=== PATIENT | male | born 1990 | race African-American/Black ===

== ENCOUNTER 2016-11-24 01:20 | Emergency (ER) | payer MEDICAID, OTHER ==
[~2016-11-24] VITALS: Ht 182.9 cm; Wt 108.9 kg
[2016-11-24 02:29] LABS: Basophils # (auto) 0 uL; Basophils % (auto) 0.4 % (0.0-2.0); Eosinophils # (auto) 0.1 uL; Eosinophils % (auto) 0.6 % (0.0-7.0); Hematocrit 49.1 % (41.0-53.0); Hemoglobin 15.7 g/dL (13.5-17.5); Lymphocytes # (auto) 2.5 uL; Lymphocytes % (auto) 21.4 % (10.0-50.0); Mean Corpuscular Hemoglobin 27.6 pg (28.0-32.0); Mean Corpuscular Volume 86.2 fL (80.0-100.0); Mean Platelet Volume 9.3 fL (7.4-10.4); Monocytes # (auto) 0.6 uL; Monocytes % (auto) 5.5 % (0.0-12.0); Neutrophils # (auto) 8.5 uL; Neutrophils % (auto) 72.1 % (37.0-80.0); Platelet Count (auto) 247 10^3/uL (140-450); Red Cell Distribution Width 13.4 % (11.6-16.0); White Blood Cell 11.7 10^3/uL (4.4-10.8)
[2016-11-24 03:11] LABS: Chloride 108 mmol/L (98-107); Sodium 141 mmol/L (136-145)
[2016-11-24 03:21] LABS: Alkaline Phosphatase 125 U/L (45-117); Anion Gap 12 (5-15); Aspartate Aminotransferase 17 U/L (15-37); BUN/Creatinine Ratio 20.3; Bilirubin, Total 0.3 mg/dL (0.2-1.0); Blood Urea Nitrogen 16 mg/dL (7-18); Calcium 8.6 mg/dL (8.5-10.1); Carbon Dioxide 21 mmol/L (21-32); GFR African American 155 mL/min; GFR Non-African American 128 mL/min; Glucose 93 mg/dL (74-106); Salicylate < 1.7 mg/dL (2.8-20.0); Total Protein 7.6 g/dL (6.4-8.2)
[2016-11-24 03:24] LABS: Acetaminophen < 2.0 ug/mL (10-30)
[2016-11-24 05:46] VITALS: BP 133/79
== END 2016-11-24 06:05 | disposition home or self-care (01) ==
LOC: ER 01:23
DX: T50.992A Poisoning by other drugs, medicaments and biological substances, intentional self-harm, initial encounter (principal); F32.9 Major depressive disorder, single episode, unspecified; Y92.89 Other specified places as the place of occurrence of the external cause; F43.10 Post-traumatic stress disorder, unspecified
CPT/HCPCS: 36415; 80053; 80320; 80329; 85025; 99284; G0434

== ENCOUNTER 2017-08-07 07:09 | Emergency (ER) | payer OTHER ==
[~2017-08-07] VITALS: Ht 185.4 cm; Wt 102.1 kg
[2017-08-07 08:09] VITALS: BP 138/101
== END 2017-08-07 08:30 | disposition home or self-care (01) ==
LOC: ER 07:09
DX: K04.7 Periapical abscess without sinus (principal)

== ENCOUNTER 2018-06-10 08:04 | Emergency (ER) | payer SELFPAY ==
[~2018-06-10] VITALS: Ht 182.9 cm; Wt 108.9 kg
[2018-06-10 08:05] VITALS: BP 154/89
== END 2018-06-10 08:43 | disposition home or self-care (01) ==
LOC: ER 08:04
DX: T63.441A Toxic effect of venom of bees, accidental (unintentional), initial encounter (principal); Y92.89 Other specified places as the place of occurrence of the external cause

== ENCOUNTER 2021-06-21 22:20 | Emergency (ER) | payer OTHER ==
[~2021-06-21] VITALS: Ht 182.9 cm; Wt 127.0 kg
[2021-06-21] MEDS ORDERED: HYDROcodone-ACET 10/325MG TAB PO ONE (23:30)
[2021-06-21] MEDS ORDERED: IBUPROFEN 800 MG TAB PO ONE (23:30)
[2021-06-21] MEDS ORDERED: diazePAM 5 MG TAB PO ONE (23:30)
[2021-06-22] MEDS ORDERED: diazePAM 5 MG TAB PO ONE (01:15)
[2021-06-22] MEDS ORDERED: HYDROcodone-ACET 10/325MG TAB PO ONE (01:15)
[2021-06-22 01:52] VITALS: BP 129/85
== END 2021-06-22 03:41 | disposition home or self-care (01) ==
LOC: EDBD 22:20 → ER 22:32
DX: M51.9 Unspecified thoracic, thoracolumbar and lumbosacral intervertebral disc disorder (principal)
CPT/HCPCS: 72131